=== PATIENT | female | born 1990 | race African-American/Black ===

== ENCOUNTER 2020-07-27 08:40 | Emergency (ER) | payer OTHER ==
--- OUTSIDE RECORDS SUMMARY | 2020-07-27 08:53 | XMS REPORT | Continuity of Care Document ---
:1990 Author Organization [facility] t Address [address] [place] [address] Care Team Providers Name Role Phone Unavailable Unavailable Unavailable Payers Payer Name Policy Type Policy Number Effective Date Expiration Date S ource Problems This patient has no known problems. Allergies, Adverse Reactions, Alerts Allergy Allergy Status Severity Reaction(s) Onset Inactive Treating Comm ents Source Name Type Date Date Clinician No Known DA Active U 2018-11 [facility] 12-23 [facility] 00:00: [facility] 00 are [facility] Medications This patient has no known medications. Procedures This patient has no known procedures. Encounters Start End Encounter Admission Attending Care Care Encounter Source Date/Time Date/Time Type Type Clinicians Facility Department ID 2020-03-10 2020-03-10 Emergency E [facility] [id number] [facility] 19:27:00 19:27:00 2018-07-14 2018-07-14 Outpatient [facility] [id number] [address] [place] [address] 00:00:00 00:00:00 [facility] 2017-07-29 2017-07-30 Outpatient [facility] [id number] [address] [place] 00:00:00 00:00:00 [facility] Results Test Description Test Time Test Comments Results Result [facility] e Comments - CT ABD PELVIS 2019-10-22 Patient Name: W/CONT 13:44:00 FLAKITA HUSTON Unit No: [id number] EXAMS: CPT: [id number] CT ABD PELVIS W/CONT [id number] History: abdominal pain CT SCAN OF THE ABDOMEN AND PELVIS WITH CONTRAST FINDINGS: CT scan of the abdomen and pelvis was performed with intravenous contrast. CT radiation dose optimization is achieved for this examination by the use of a CT protocol in accordance with ACR practice standards and adherence to paint mixer machine's recommendations. One or more of the following dose reduction techniques were used: Automated exposure control, adjustment of the mA and/or KV according to patient size, and/or utilization of iterative reconstruction technique. No abnormality of the liver, spleen, pancreas, adrenal glands or kidneys is identified. The gallbladder is unremarkable. No adenopathy or mass is seen. The abdominal aorta is normal in size in caliber. There is no evidence of intestinal obstruction or acute appendicitis. No free intraperitoneal air is identified. The urinary bladder is unremarkable. A 2 cm fibroid is present in the uterus. A small amount of fluid is present in the cul-de-sac. A probable 1.8 cm cyst is present in the left ovary. No acute fracture is identified. Images through the lung bases are unremarkable. IMPRESSION: 1. A small amount of fluid is present in the cul-de-sac. 2. A 2 cm fibroid is present in the uterus. 3. Probable 0.8 cm left ovarian cyst. Follow-up pelvic ultrasound is recommended if clinically indicated. Name: FLAKITA HUSTON [facility] Phys: Juan Carlos Melton [address] [facility] : 1990 Age: 29 Sex: [place] [id number] Loc: N.ERS Exam Date: 10/22/2019 Status: REG ER PH: FAX: PAGE 1 Signed Report (CONTINUED) Patient Name: BETZAIDAYEIMICorwin Medel Unit No: [id number] EXAMS: CPT: [id number] CT ABD PELVIS W/CONT [id number] <Continued> at 1344 Reported and signed by: Bradly Martin MD CC: Juan Carlos Devine DO Technologist: ALEXEY Groves CTDI: 6.96 DLP: 340.32 Trscr Dt/Tm: 10/22/2019 (1344) by:[email or web address] Orig Print D/T: S: 10/22/2019 (2342) BATCH NO: N/A Name: FLAKITA HUSTON [facility] Phys: Juan Carlos Melton [address] : 1990 Age: 29 Sex: F [place] [id number] Loc: N.ERS Exam Date: 10/22/2019 Status: REG ER PH: FAX: PAGE 2 Signed Report HCG SERUM QUAL 2019-10-22 12:35:00 Test Item Value Reference Range Interpretation Comme nts HCG SERUM QUAL (test code = NEGATIVE NEGATIVE This is a qualitative screening HCGQL) test.The quanti tative Bhcg may be helpful.Weakly positive results should be repea gucci in 48 hours. COMPREHENSIVE METABOLIC [id number] 12:00:00 Test Item Value Reference Range Interpretation Comments SODIUM (test code = 135 mmol/L 135-145 N NA) POTASSIUM (test 3.4 mmol/L 3.6-5.0 L code = K) CHLORIDE (test code 99 mmol/L 101-111 L = CL) CARBON DIOXIDE 27 mmol/L 21-31 N (test code = CO2) GLUCOSE (test code 89 mg/dl 70-100 N = GLU) BLOOD UREA NITROGEN 6 mg/dl 6-20 N (test code = BUN) GLOMERULAR >=60 max >60 The estimated FILTRATION RATE estimate glomerular (test code = GFR) filtration rate is computed usingpatient ra ce, age (>18), sex, and serum creatinin e. If anyof the ne eded data elements a re missing the Laboratory sana ot compute an estimation of t he glomerular filtration rate . CREATININE (test 0.88 mg/dL 0.44-1.03 N code = CREAT) TOTAL PROTEIN (test 7.0 g/dL 6.7-8.2 N code = PROT) ALBUMIN (test code 4.2 g/dL 3.2-5.5 N = ALB) CALCIUM (test code 9.7 mg/dL 8.5-10.5 N = CA) BILIRUBIN TOTAL 0.70 mg/dL 0.2-1.3 N (test code = BILT) SGOT/AST (test code 22 U/L 10-42 N = AST) SGPT/ALT (test code 16 U/L 10-60 N = ALT) ALKALINE 42 U/L 42-121 N PHOSPHATASE (test code = ALKP) [id number] 12:00:00 Test Item Value Reference Range Interpretation Comments LIPASE (test code = LIP) 23 IU/L 22-51 N COMPREHENSIVE METABOLIC [id number] 11:56:00 Test Item Value Reference Range Interpretation Comments SODIUM (test code = 135 mmol/L 135-145 N NA) POTASSIUM (test 3.4 mmol/L 3.6-5.0 L code = K) CHLORIDE (test code 99 mmol/L 101-111 L = CL) CARBON DIOXIDE 27 mmol/L 21-31 N (test code = CO2) GLUCOSE (test code 89 mg/dl 70-100 N = GLU) BLOOD UREA NITROGEN 6 mg/dl 6-20 N (test code = BUN) GLOMERULAR >=60 max >60 The estimated FILTRATION RATE estimate glomerular (test code = GFR) filtration rate is computed usingpatient ra ce, age (>18), sex, and serum creatinin e. If anyof the ne eded data elements a re missing the Laboratory sana ot compute an estimation of t he glomerular filtration rate . CREATININE (test 0.88 mg/dL 0.44-1.03 N code = CREAT) TOTAL PROTEIN (test 7.0 g/dL 6.7-8.2 N code = PROT) ALBUMIN (test code 4.2 g/dL 3.2-5.5 N = ALB) CALCIUM (test code 9.7 mg/dL 8.5-10.5 N = CA) BILIRUBIN TOTAL mg/dL 0.2-1.3 (test code = BILT) SGOT/AST (test code U/L 10-42 = AST) SGPT/ALT (test code U/L 10-60 = ALT) ALKALINE U/L 42-121 PHOSPHATASE (test code = ALKP) [id number] 11:56:00 Test Item Value Reference Range Interpretation Comments LIPASE (test code = LIP) 23 IU/L 22-51 N URINALYSIS [id number] 11:55:00 Test Item Value Reference Range Interpretation Comments UA COLOR (test code = COLU) Straw YELLOW UA APPEARANCE (test code = APPU) Clear CLEAR UA GLUCOSE DIPSTICK (test code = NEGATIVE NEGATIVE DGLUU) UA BILIRUBIN DIPSTICK (test code = NEGATIVE NEGATIVE BILU) UA KETONE DIPSTICK (test code = NEGATIVE NEGATIVE KETU) UA SPECIFIC GRAVITY (test code = 1.005 1.001-1.030 SGU) UA BLOOD DIPSTICK (test code = RORY) NEGATIVE NEGATIVE UA PH DIPSTICK (test code = SELENA) 7.0 5.0-9.0 UA PROTEIN DIPSTICK (test code = NEGATIVE NEGATIVE PROU) UA UROBILINOGEN DIPSTICK (test code NEGATIVE <=1.0 = URO) UA NITRITE DIPSTICK (test code = NEGATIVE NEGATIVE JOSE) UA ASCORBIC ACID DIPSTICK (test NEGATIVE code = AAU) UA LEUKOCYTE ESTERASE DIPSTICK TRACE NEGATIVE A (test code = LEUU) UA WBC (test code = WBCU) 0-5 /HPF 0-5 UA RBC (test code = RBCU) 0-5 /HPF 0-5 UA EPITHELIAL CELLS (test code = RARE /LPF NONE-FEW EPIU) UA BACTERIA (test code = BACU) None /HPF NONE SEEN CBC W/AUTO [id number] 11:43:00 Test Item Value Reference Range Interpretation Comments WHITE BLOOD CELL (test code = 11.4 x10 3/uL 3.2-11.5 N WBC) RED BLOOD CELL (test code = 4.32 x10(6)/m 3.70-5.10 N RBC) HEMOGLOBIN (test code = HGB) 13.2 g/dL 12.0-15.0 N HEMATOCRIT (test code = HCT) 38.2 % 35.7-44.8 N MEAN CELL VOLUME (test code = 88 fL 80-100 N MCV) MEAN CELL HGB (test code = MCH) 30.6 pg 26.2-33.8 N MEAN CELL HGB CONCENTRATION 34.6 g/dL 30.0-34.0 H (test code = MCHC) RED CELL DISTRIBUTION WIDTH 12.6 % 11.3-14.5 N (test code = RDW) PLATELET COUNT (test code = 333 x10 3/uL 130-408 N PLT) MEAN PLATELET VOLUME (test code 10.4 fL 8.6-12.6 N = MPV) NEUTROPHIL % (test code = NT%) 66.2 % 40.0-70.0 N IMMATURE GRANULOCYTE % (test 0.3 % 0.0-2.0 N code = IG%) LYMPHOCYTE % (test code = LY%) 27.3 % 20-40 N MONOCYTE % (test code = MO%) 5.6 % 1-10 N EOSINOPHIL % (test code = EO%) 0.2 % 0.0-5.0 N BASOPHIL % (test code = BA%) 0.4 % 0.0-1.0 N NUCLEATED RBC % (test code = 0.0 % 0.0-0.9 N NRBC%) NEUTROPHIL # (test code = NT#) 7.5 x10 3/uL 1.6-7.2 H LYMPHOCYTE # (test code = LY#) 3.10 x10 3/uL 1.1-2.7 H MONOCYTE # (test code = MO#) 0.6 x10 3/uL 0.3-0.8 N EOSINOPHIL # (test code = EO#) 0.0 x10 3/uL 0.0-0.5 N BASOPHIL # (test code = BA#) 0.1 x10 3/uL 0.0-0.1 N
[2020-07-27] MEDS ORDERED: MEPERIDINE HCL 50 MG/ML ONE (09:31)
[2020-07-27] MEDS ORDERED: MAGNE/ALUM HYDROXD 30 ML UCUP ONE (09:31)
[2020-07-27] MEDS ORDERED: LIDOCAINE VISCOUS 2% SOLN 15 ML UDC ONE (09:31)
[2020-07-27] MEDS ORDERED: ONDANSETRON 4 MG/2 ML VIAL ONE (09:55)
[2020-07-27 09:59] LABS: Basophils % 0.4 % (0-1.3); Hematocrit 43.4 % (36.0-45.0); Lymphocytes % 28.7 % (15.3-44.8); MPV 8.9 fL (7.6-11.3); RBC Red Blood Cell Count 4.79 M/uL (3.86-4.86)
[2020-07-27 10:01] LABS: Urine Blood NEGATIVE (NEG); Urine Glucose NEGATIVE (NEG); Urine Protein NEGATIVE (NEG); Urine Specific Gravity 1.015 (1.005-1.030)
[2020-07-27 10:13] LABS: Albumin 4.3 g/dL (3.4-5.0); Bilirubin Direct 0.2 mg/dL (0-0.2); Bilirubin Total 0.5 mg/dL (0.2-1.0); Potassium 3.6 mmol/L (3.5-5.1); Protein, Total 8.5 g/dL (6.4-8.2)
[2020-07-27 10:22] LABS: Urine RBC NONE SEEN /HPF (NONE SEEN)
[2020-07-27 10:23] LABS: Urine Bacteria <20 /HPF (<20); Urine Culture Reflex Order NOT NEEDED
--- NOTE | 2020-07-27 11:01 | RAD REPORT ---
EXAM DESCRIPTION: CT - Abdomen Pelvis W Contrast - 07/27/2020 10:25 am CLINICAL HISTORY: Abd pain;Epigastric pain COMPARISON: No comparisons TECHNIQUE: Biphasic, helical CT imaging of the abdomen and pelvis was performed following 100 ml non -ionic IV contrast. No oral contrast administered. All CT scans are performed using dose optimization technique as appropriate and may include automated exposure control or mA/KV adjustment according to patient size. FINDINGS: No suspicious findings in the lung bases. The liver, spleen, and pancreas show no suspicious findings. Gallbladder and biliary tree are also wi thout suspicious finding. Symmetric renal function is seen with no hydronephrosis or suspicious renal mass. No pyelonephritis o r acute parenchymal process. No bladder abnormalities. No adrenal abnormalities. No uterine abnormality seen. Uterus is deviated slightly to the right. No left ovarian suspicious fin ding. Right ovary appears to be positioned level and posterior to the uterus. An involuting right ova elis cyst is present approximately 18 mm in size. Physiologic quantity of free fluid is present in th e cul de sac. No fallopian tube dilatation. No dilated bowel loops or bowel wall thickening. Appendix is identified and normal. No free air or pn eumatosis. No hernia, mass or bulky lymphadenopathy. No suspicious bony findings. Patient has a paucity of intraabdominal fat which results in crowding of the abdominal and pelvic str uctures. IMPRESSION: No appendicitis or surgically emergent finding. Involuting 18 millimeter right ovarian cyst is present. No pyelonephritis or acute finding seen.
--- NOTE | 2020-07-27 11:07 | EDPHYS ---
Physician Documentation [facility] Name: Hali Luciano Age: 29 yrs Sex: Female : 1990 Arrival Date: 07/27/2020 Time: 08:41 Bed 20 Private MD: ED Physician Kt Martinez HPI: 07/27 09:15 This 29 yrs old Black Female presents to ER via Ambulatory with complaints of Abdominal rn Pain. 09:15 The patient presents with abdominal pain in the epigastric area. Onset: The rn symptoms/episode began/occurred > 1 year ago. The symptoms radiate to chest. Associated signs and symptoms: Pertinent positives: indigestion. The symptoms are described as achy. Modifying factors: The symptoms are alleviated by nothing, the symptoms are aggravated by food, touching the area. Severity of pain: At its worst the pain was moderate in the emergency department the pain has improved. The patient has experienced similar episodes in the past. The patient has not recently seen a physician. Reports longstanding hx of upper abd pain, no fever, reports coming back last few days, + epigastric and LUQ abd pain, no vomiting, no diarrhea. Reports told in past that had acid problems, with biopsy and abx, reports doesn't take daily antacid medication. No trauma. No sob or cough. + smokes. . Historical: - Allergies: 09:01 No Known Allergies; hb - Immunization history:: Adult Immunizations up to date. - Social history:: Smoking status: Patient reports the use of cigarette tobacco products, smokes one-half pack cigarettes per day. - Family history:: not pertinent. - Hospitalizations: : No recent hospitalization is reported. ROS: 09:18 Constitutional: Negative for fever, chills, and weight loss, Eyes: Negative for injury, rn pain, redness, and discharge, Cardiovascular: Negative for palpitations, and edema, Respiratory: Negative for shortness of breath, cough, wheezing, and pleuritic chest pain, Abdomen/GI: + upper abd pain MS/Extremity: Negative for injury and deformity, Skin: Negative for injury, rash, and discoloration, Neuro: Negative for headache, weakness, numbness, tingling, and seizure. Exam: 09:18 Constitutional: This is a well developed, well nourished patient who is awake, alert, rn and in no acute distress. Head/Face: Normocephalic, atraumatic. Cardiovascular: Regular rate and rhythm. No pulse deficits. Respiratory: No increased work of breathing, no retractions or nasal flaring. Abdomen/GI: soft, + epigastric abd tenderness and LUQ tenderness, non-distended. Skin: Warm, dry MS/ Extremity: Pulses equal, no cyanosis. Neuro: Awake and alert, GCS 15 Vital Signs: 08:57 BP 138 / 82; Pulse 71; Resp 16; Temp 97.2; Pulse Ox 100% on R/A; Weight 54.43 kg; hb Height 5 ft. 3 in. (160.02 cm); Pain 10/10; 10:00 BP 141 / 80; Pulse 64; Resp 18; Pulse Ox 100% on R/A; Pain 7/10; em 11:00 BP 138 / 76; Pulse 61; Resp 16; Pulse Ox 97% on R/A; em 08:57 Body Mass Index 21.26 (54.43 kg, 160.02 cm) hb MDM: 08:57 Patient medically screened. rn 11:05 Differential diagnosis: cholecystitis, Cholelithiasis, gastritis, gastroesophageal rn reflux disease, non-specific abd pain, Peptic Ulcer Disease. Data reviewed: vital signs, nurses notes, lab test result(s), radiologic studies, CT scan, and as a result, I will discharge patient. Counseling: I had a detailed discussion with the patient and/or guardian regarding: the historical points, exam findings, and any diagnostic results supporting the discharge/admit diagnosis, lab results, radiology results, the need for outpatient follow up, to return to the emergency department if symptoms worsen or persist or if there are any questions or concerns that arise at home. Response to treatment: the patient's symptoms have mildly improved after treatment, and as a result, I will discharge patient. Special discussion: Based on the patient's Hx, exam, and Dx evaluation, there is no indication for emergent surgery or inpatient Tx. It is understood by the patient/guardian that if the Sx's persist or worsen they need to return immediately for re-evaluation. I discussed with the patient/guardian in detail that at this point there is no indication for admission to the hospital. It is understood, however, that if the symptoms persist or worsen the patient needs to return immediately for re-evaluation. Based on the history and exam findings, there is no indication for further emergent testing or inpatient evaluation. I discussed with the patient/guardian the need to see the millroom supervisor for further evaluation of the symptoms. ED course: Has GI f/u this week. Will dc home with protonix and return precautions. Most likely GERD/gastritis/PUD.. 07/27 09:12 Order name: Basic Metabolic Panel; Complete Time: 10:40 rn 07/27 09:12 Order name: CBC with Diff; Complete Time: 10:08 rn 07/27 09:12 Order name: Hepatic Function; Complete Time: 10:40 rn 07/27 09:12 Order name: Lipase; Complete Time: 10:40 rn 07/27 09:12 Order name: Urine Microscopic Only; Complete Time: :40 rn 07/27 09:58 Order name: Urine Dipstick--Ancillary (enter results); Complete Time: 10:08 07/27 09:12 Order name: IV Saline Lock; Complete Time: 09:46 rn 07/27 09:12 Order name: CT Abd/Pelvis - IV Contrast Only; Complete Time: 11:05 rn 07/27 09:14 Order name: EKG; Complete Time: 09:14 mt 07/27 09:58 Order name: Urine --Ancillary (enter results); Complete Time: 10:08 07/27 09:12 Order name: Labs collected and sent; Complete Time: 09:46 rn 07/27 09:12 Order name: Urine Test (obtain specimen); Complete Time: 09:46 07/27 09:12 Order name: Urine Dipstick-Ancillary (obtain specimen); Complete Time: 09:46 rn 07/27 09:14 Order name: EKG - Nurse/Tech; Complete Time: 09:14 mt Administered Medications: 09:46 Drug: Zofran (Ondansetron) 4 mg Route: IVP; Site: left antecubital; em 10:10 Follow up: Response: No adverse reaction em 10:00 Drug: GI Cocktail without - (Maalox Suspension 30 ml, Lidocaine Liquid 2 % 15 em ml) Route: PO; 10:10 Follow up: Response: No adverse reaction em 10:13 Drug: Demerol 25 mg Route: IVP; Site: left antecubital; em 10:51 Follow up: Response: No adverse reaction; Marked relief of symptoms em 11:38 Drug: [place] 10 mg-325 mg 1 tabs Route: PO; em 11:54 Follow up: Response: No adverse reaction em Disposition: 07/27/20 11:06 Discharged to Home. Impression: Gastritis, unspecified, without bleeding. - Condition is Stable. - Discharge Instructions: Gastritis, Adult, Peptic Ulcer, Food Choices for Peptic Ulcer Disease. - Prescriptions for Protonix 40 mg Oral Tablet - take 1 tablet by ORAL route once daily; 30 tablet. Zofran ODT 4 mg Oral tablet,disintegrating - place 1 tablet by TRANSLINGUAL route every 8 hours As needed; 20 tablet. - Medication Reconciliation Form, Thank You Letter, Antibiotic Education, Prescription Opioid Use form. - Follow up: Private Physician; When: As needed; Reason: Recheck today's complaints, Re-evaluation by your physician. - Problem is chronic. - Symptoms have improved. Signatures: Dispatcher [employer] Adam Beltran RN RN em Nieto, Roman, MD MD rn Baxter, Heather, RN RN Itzel Holloway il Corrections: (The following items were deleted from the chart) 11:55 11:06 07/27/2020 11:06 Discharged to Home. Impression: Gastritis, unspecified, without em bleeding. Condition is Stable. Forms are Medication Reconciliation Form, Thank You Letter, Antibiotic Education, Prescription Opioid Use. Follow up: Private Physician; When: As needed; Reason: Recheck today's complaints, Re-evaluation by your physician. Problem is chronic. Symptoms have improved. rn
--- NOTE | 2020-07-27 11:07 | ER ---
Nurse's Notes [facility] Name: Hali Luciano Age: 29 yrs Sex: Female : 1990 Arrival Date: 07/27/2020 Time: 08:41 Bed 20 Private MD: Diagnosis: Gastritis, unspecified, without bleeding Presentation: 07/27 08:57 Chief complaint: Upper abdominal pain that radiates to chest and mid back x 2-3 days. hb Coronavirus screen: At this time, the client does not indicate any symptoms associated with coronavirus-19. Ebola Screen: No symptoms or risks identified at this time. Initial Sepsis Screen: Does the patient meet any 2 criteria? No. Patient's initial sepsis screen is negative. Does the patient have a suspected source of infection? No. Patient's initial sepsis screen is negative. Risk Assessment: Do you want to hurt yourself or someone else? Patient reports no desire to harm self or others. Onset of symptoms was July 25, 2020. 08:57 Method Of Arrival: Ambulatory 08:57 Acuity: LOYDA 3 hb Historical: - Allergies: 09:01 No Known Allergies; hb - Immunization history:: Adult Immunizations up to date. - Social history:: Smoking status: Patient reports the use of cigarette tobacco products, smokes one-half pack cigarettes per day. - Family history:: not pertinent. - Hospitalizations: : No recent hospitalization is reported. Screenin:30 Abuse screen: Denies threats or abuse. Nutritional screening: No deficits noted. em Tuberculosis screening: No symptoms or risk factors identified. Fall Risk None identified. Assessment: 09:30 General: Appears in no apparent distress. uncomfortable, Behavior is calm, cooperative, em appropriate for age, Denies fever. Pain: Complains of pain in chest Pain does not radiate. Pain began 1-2 weeks ago. Neuro: Level of Consciousness is awake, alert, obeys commands, Oriented to person, place, time, situation, Appropriate for age. Cardiovascular: Capillary refill < 3 seconds Patient's skin is warm and dry. Respiratory: Airway is patent Respiratory effort is even, unlabored, Respiratory pattern is regular, symmetrical. GI: Abdomen is flat, Reports nausea, Patient currently denies diarrhea, vomiting. Derm: Skin is intact, is healthy with good turgor, Skin is pink, warm \T\ dry. Musculoskeletal: Capillary refill < 3 seconds, Range of motion: intact in all extremities. 10:12 Reassessment: Patient appears in no apparent distress at this time. Patient states em symptoms have not improved. 11:22 Reassessment: Patient appears in no apparent distress at this time. Patient and/or em family updated on plan of care and expected duration. Pain level reassessed. Patient is alert, oriented x 3, equal unlabored respirations, skin warm/dry/pink. 11:47 Reassessment: Dr. Martinez at bedside. em Vital Signs: 08:57 BP 138 / 82; Pulse 71; Resp 16; Temp 97.2; Pulse Ox 100% on R/A; Weight 54.43 kg; hb Height 5 ft. 3 in. (160.02 cm); Pain 10/10; 10:00 BP 141 / 80; Pulse 64; Resp 18; Pulse Ox 100% on R/A; Pain 7/10; em 11:00 BP 138 / 76; Pulse 61; Resp 16; Pulse Ox 97% on R/A; em 08:57 Body Mass Index 21.26 (54.43 kg, 160.02 cm) hb ED Course: 08:41 Patient arrived in ED. ds1 08:57 Kt Martinez MD is Attending Physician. rn 08:59 Triage completed. hb 09:01 Arm band placed on. hb 09:14 Adam Keyes, RN is Primary Nurse. em 09:30 Patient has correct armband on for positive identification. Bed in low position. Call em light in reach. Side rails up X2. Adult w/ patient. monitoring tech on. Pulse ox on. NIBP on. 09:35 Initial lab(s) drawn, by me, sent to lab. Inserted saline lock: 22 gauge in left em antecubital area, using aseptic technique. Blood collected. Patient maintains SpO2 saturation greater than 95% on room air. 09:37 Urine collected: clean catch specimen, clear. em 10:25 CT Abd/Pelvis - IV Contrast Only In Process Unspecified. EDMS 11:36 IV discontinued, intact, bleeding controlled, No redness/swelling at site. Pressure em dressing applied. 11:36 No provider procedures requiring assistance completed. em Administered Medications: 09:46 Drug: Zofran (Ondansetron) 4 mg Route: IVP; Site: left antecubital; em 10:10 Follow up: Response: No adverse reaction em 10:00 Drug: GI Cocktail without - (Maalox Suspension 30 ml, Lidocaine Liquid 2 % 15 em ml) Route: PO; 10:10 Follow up: Response: No adverse reaction em 10:13 Drug: Demerol 25 mg Route: IVP; Site: left antecubital; em 10:51 Follow up: Response: No adverse reaction; Marked relief of symptoms em 11:38 Drug: [place] 10 mg-325 mg 1 tabs Route: PO; em 11:54 Follow up: Response: No adverse reaction em Outcome: 11:06 Discharge ordered by . rn 11:54 Discharged to home ambulatory, with family. em 11:54 Condition: good 11:54 Discharge instructions given to patient, Instructed on discharge instructions, follow up and referral plans. medication usage, Demonstrated understanding of instructions, follow-up care, medications, Prescriptions given X 2. 11:55 Patient left the ED. em Signatures: Dispatcher [employer] Adam Beltran RN RN Jessica Young ds1 Kt Martinez MD MD rn Baxter, Heather, RN RN
[2020-07-27] MEDS ORDERED: HYDROCODONE/APAP 10/325 TAB ONE (11:44)
[2020-07-27 12:07] VITALS: TEMP 97.2
[2020-07-27 12:10] VITALS: BP 138/76; O2SAT 97
--- NOTE | 2020-07-27 12:16 | EKG ---
Test Date: 2020-07-27 Test Time: 09:02:53 Estate Administrator: DEEPAK MEASUREMENT RESULTS: Intervals: Rate: 84 NC: 148 QRSD: 70 QT: 370 QTc: 437 [place]: P: 59 NC: 148 QRS: 74 T: 65 INTERPRETIVE STATEMENTS: Normal sinus rhythm with sinus arrhythmia Normal ECG No previous ECG available for comparison Electronically Signed On 07-27-20 12:14:58 CDT by Lemuel Sutton
== END 2020-07-27 11:55 | disposition home or self-care (01) ==
LOC: ER 08:40
DX: K29.70 Gastritis, unspecified, without bleeding (principal); F17.210 Nicotine dependence, cigarettes, uncomplicated
CPT/HCPCS: 93005; 85025; 80048; 36415; 81025; 80076; 83690; 74177; Q9967; J2175; J2405; 81003; 81015; 96374; 96375; 99285